=== PATIENT | female | born 1985 | race Hispanic/Latino ===

== ENCOUNTER 2022-04-19 00:52 | Emergency (ER) | payer SELFPAY ==
[~2022-04-19] VITALS: Ht 157.5 cm; Wt 99.3 kg
[2022-04-19] MEDS ORDERED: KETOROLAC TROMETHAMINE 30 MG/ML VIAL IV STA (01:20)
[2022-04-19] MEDS ORDERED: KETOROLAC TROMETHAMINE 30 MG/ML VIAL ONE (01:30)
[2022-04-19] MEDS ORDERED: METOCLOPRAMIDE HCL 10 MG/2ML VIAL ONE (01:30)
[2022-04-19] MEDS ORDERED: SODIUM CHLORIDE 0.9% 1000ML 1,000 ML IV ONE (01:30)
[2022-04-19] MEDS ORDERED: DIPHENHYDRAMINE HCL INJ 50 MG/ML VIAL ONE (01:30)
[2022-04-19] MEDS ORDERED: METOCLOPRAMIDE HCL 10 MG/2ML VIAL IV ONE (01:30)
[2022-04-19] MEDS ORDERED: SODIUM CHLORIDE 0.9% 1000ML 1,000 ML ONE (01:30)
[2022-04-19] MEDS ORDERED: DIPHENHYDRAMINE HCL INJ 50 MG/ML VIAL IV ONE (01:30)
== END 2022-04-19 02:30 | disposition home or self-care (01) ==
LOC: FSED 01:21
DX: R51.9 Headache, unspecified (principal); R11.0 Nausea; R03.0 Elevated blood-pressure reading, without diagnosis of hypertension
CPT/HCPCS: 70450; 99283; J1200; J1885; J2765; J7030